=== PATIENT | male | born 1930 | race Caucasian/White ===

== ENCOUNTER 2016-10-06 17:56 | Emergency (ER) | payer OTHER ==
[~2016-10-06] VITALS: Ht 188 cm; Wt 78.6 kg
[~2016-10-06 17:56] MED LIST: Aspirin PO; BONIVA150 MG PO; CRESTOR10 MG PO; Caltrate 600/400 PO; Flomax PO; Lactaid Fast Acting PO; Move Free Advanced T PO; NEXIUM20 MG PO; Percocet 5/325,Endoc PO; ROBITUSSIN AC,T10 ML PO; Tofranil PO; ZITHROMAX Z-PA250 MG PO
[2016-10-06 20:06] LABS: HEMATOCRIT 37.4 % (38.0-50.0); MCH 32.9 PG (29.0-34.0); MCHC 32.4 G/DL (30.0-36.0); MCV 101.6 FL (86-99); MEAN PLAT.VOLUME 9.9 uM^3 (9.0-12.4); PLATELET COUNT 235 K/uL (156-360); RBC DIS.WIDTH-SD 48.8 % (39-53); RED BLOOD COUNT 3.68 M/uL (4.00-5.50); WHITE BLOOD COUNT 7.9 K/uL (4.1-10.2)
[2016-10-06 20:23] LABS: CHLORIDE 104 mEq/L (99-109); POTASSIUM 3.7 mEq/L (3.7-5.4); SODIUM 139 mEq/L (136-147)
[2016-10-06 20:24] LABS: GLUCOSE 139 mg/dL (70-99)
[2016-10-06 20:26] LABS: ANION GAP 11 MEQ/L (2-14)
[2016-10-06 20:28] LABS: GFR ESTIMATE (CALCULATED) > 59 mL/min/
[2016-10-06 20:29] LABS: UREA NITROGEN (BUN) 21 mg/dL (9-23)
[2016-10-06 20:31] LABS: INTER. NORMALIZED RATIO 1.1; PROTHROMBIN TIME 10.9 (9.2-11.2)
[2016-10-06 23:10] VITALS: BP 162/94
== END 2016-10-06 23:13 | disposition short-term general hospital (02) ==
LOC: EME → EDBD 17:56 → EME 17:56
PROVIDERS: Emergency Medicine
DX: S12.100A Unspecified displaced fracture of second cervical vertebra, initial encounter for closed fracture (principal); S01.21XA Laceration without foreign body of nose, initial encounter; S01.81XA Laceration without foreign body of other part of head, initial encounter; W19.XXXA Unspecified fall, initial encounter; Z87.891 Personal history of nicotine dependence; Z79.82 Long term (current) use of aspirin; K21.9 Gastro-esophageal reflux disease without esophagitis; F03.90 Unspecified dementia, unspecified severity, without behavioral disturbance, psychotic disturbance, mood disturbance, and anxiety
CPT/HCPCS: 70450; 70486; 72125; 72141; 80048; 85027; 85610; 85730; 86850; 86900; 86901; 99281; 99285; J3010